=== PATIENT | male | born 1985 | race Caucasian/White ===

== ENCOUNTER 2021-01-03 11:57 | Emergency (ER) | payer BC ==
[2021-01-03] MEDS ORDERED: HYDROmorphone 1 MG/ML Syringe IM ONE (12:20)
--- NOTE | 2021-01-03 12:25 | EDM.PDOC ---
ED HPI GENERAL MEDICAL PROBLEM - General Chief Complaint: Lower Extremity Injury/Pain Stated Complaint: RT ANKLE INJURY Time Seen by Provider: 01/03/21 12:09 Source of Information: Reports: Patient, RN Notes Reviewed History Limitations: Reports: No Limitations - History of Present Illness INITIAL COMMENTS - FREE TEXT/NARRATIVE: Patient is a 35-year-old male who presents to the ER for a right lower leg injury. 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 He reports pain in his right lower leg, and right ankle. He was initially able to bear weight, however he states that the pain is so bad now that he cannot bear weight. He did take 4 ibuprofen prior to coming to the ER. He does note a prior injury to this ankle. He states he was also able to wiggle his toes prior to coming to the ER but he notes he has not been able to do so, due to the pain. There are some small superficial abrasions on the medial ankle, and on the anterior hearn as well. Mild amount of swelling is appreciated. Patient denies any other sick-like symptoms, fever/chills, cough/shortness of breath, nausea/vomiting/diarrhea. Right Ankle Pain Score (Numeric/FACES): 8 - Related Data Allergies Allergy/AdvReac Type Severity Reaction Status Date / Time No Known Allergies Allergy Verified 01/03/21 12:10 Home Meds: Home Meds Hydrocodone/Acetaminophen [Hydrocodone-Acetamin 5-325 mg] 1 tab PO Q6H PRN #20 tablet 01/03/21 [Rx] Loratadine/Pseudoephedrine [Claritin-D 24 Hour Tablet] 1 tab PO DAILY 01/03/21 [History] Past Medical History Genitourinary History: Reports: Renal Calculus Musculoskeletal History: Reports: Other (See Below) Other Musculoskeletal History: multiple fractures - Past Surgical History HEENT Surgical History: Reports: Tonsillectomy Social & Family History - Tobacco Use Tobacco Use Status *Q: Current Every Day Tobacco User Years of Tobacco use: 20 Packs/Tins Daily: 0.5 - Caffeine Use Caffeine Use: Reports: Coffee - Recreational Drug Use Recreational Drug Use: No Review of Systems - Review of Systems Review Of Systems: Comprehensive ROS is negative, except as noted in HPI. ED EXAM, GENERAL - Physical Exam Exam: See Below Exam Limited By: No Limitations General Appearance: Alert, WD/WN, No Apparent Distress Respiratory/Chest: No Respiratory Distress, Lungs Clear, Normal Breath Sounds, No Accessory Muscle Use, Chest Non-Tender Cardiovascular: Normal Peripheral Pulses, Regular Rate, Rhythm, No Edema Peripheral Pulses: 2+: Dorsalis Pedis (L), Dorsalis Pedis (R) Extremities: Normal Capillary Refill, Limited Range of Motion (of right ankle d/t pain), Other (1+ swelling to right lower leg) Neurological: Alert, Oriented, Normal Cognition, No Motor/Sensory Deficits Psychiatric: Normal Affect, Normal Mood, Anxious Skin Exam: Warm, Dry, Normal Color, No Rash, Wound/Incision (small superficial abrasions to R medial malleolus, and anterior hearn) Course - Vital Signs Last Recorded V/S: Last Vital Signs Temp 97 F 01/03/21 12:08 Pulse 86 01/03/21 12:08 Resp 16 01/03/21 12:08 BP 136/94 H 01/03/21 12:08 Pulse Ox 98 01/03/21 12:08 - Orders/Labs/Meds Orders: Active Orders 24 hr Category Date Time Status SYED Bandage [Elastic Wrap] [OM.PC] Routine Oth 01/03/21 13:12 Ordered Meds: Medications Discontinued Medications Generic Name Dose Route Start Last Admin Trade Name Patti PRN Reason Stop Dose Admin Hydromorphone HCl 1 mg 01/03/21 12:20 01/03/21 12:26 Hydromorphone 1 Mg/Ml Syringe IM 01/03/21 12:21 1 mg ONETIME ONE Administration - Re-Assessments/Exams Free Text/Narrative Re-Assessment/Exam: 01/03/21 12:24 Patient presents to the ER for right lower leg injury. We will go ahead and get x-rays of his tib-fib and ankle for evaluation, he will get 1 mg IM Dilaudid for pain management. 01/03/21 13:14 The patient's x-rays have been performed, there is soft tissue swelling however there is no acute osseous abnormality appreciated on the right ankle exam or tib-fib exam. I will discharge patient home with general recommendations. Departure - Departure Time of Disposition: 13:15 Disposition: Home, Self-Care 01 Condition: Good Clinical Impression: Crushing injury of right lower leg, initial encounter, Skin abrasion Right ankle pain Qualifiers: Chronicity: acute Qualified Code(s): M25.571 - Pain in right ankle and joints of right foot Contusion of lower leg Qualifiers: Encounter type: initial encounter Laterality: right Qualified Code(s): S80.11XA - Contusion of right lower leg, initial encounter - Discharge Information *PRESCRIPTION DRUG MONITORING PROGRAM REVIEWED*: Yes *COPY OF PRESCRIPTION DRUG MONITORING REPORT IN PATIENT CHRISTINA: No Prescriptions: Hydrocodone/Acetaminophen [Hydrocodone-Acetamin 5-325 mg] 1 tab PO Q6H PRN #20 tablet PRN Reason: Pain Instructions: Contusion, [id number] Referrals: PCP,None [Primary Care Provider] - Forms: ED Department Discharge Additional Instructions: You have been evaluated in the ED for your right lower leg injury. Your x-ray demonstrated no acute fracture or other bony abnormalities, there is quite a bit of soft tissue swelling. Please use ice as tolerated to the affected area. Please try to elevate the affected area to relieve swelling. You may keep the Syed wrap in place to help compress the tissues as well to help relieve some of the swelling. You may take Tylenol 500 mg or ibuprofen 600mg q6 hrs for pain relief. Please do so until you have a tolerable level of pain with activity. Do not exceed 4000mg Tylenol or 3200mg ibuprofen in a 24 hour time period. You were given a prescription for a strong pain medication, hydrocodone/acetaminophen 5/325 mg, please take 1 tab every 6 hours as needed for pain not relieved by Tylenol or ibuprofen alone. Please note this medication does contain Tylenol in it, so do not take more than 4000 mg in a 24- hour time span. These medications can be addictive, so please take as few as possible to achieve adequate pain control. These meds can also be quite constipating, recommend that you increase your oral fluid intake and take a stool softener like MiraLAX while taking these medications. Do not drive while taking this medication. This medication was electronically sent to the [facility] located near [facility]. Please return to ED if your symptoms should change or worsen. Sepsis Event Note (ED) - Evaluation Sepsis Screening Result: No Definite Risk - Focused Exam Vital Signs: Vital Signs Temp Pulse Resp BP Pulse Ox 01/03/21 12:08 97 F 86 16 136/94 H 98 - My Orders Last 24 Hours: My Active Orders 01/03/21 13:12 SYED Bandage [Elastic Wrap] [OM.PC] Routine - Assessment/Plan Last 24 Hours: My Active Orders 01/03/21 13:12 SYED Bandage [Elastic Wrap] [OM.PC] Routine
--- NOTE | 2021-01-03 12:59 | CR ---
Right ankle: 3 views centered to the right ankle were obtained. Comparison: No prior ankle study is available. Ankle mortise is symmetric. No acute fracture, dislocation or other bony abnormality is appreciated. Soft tissue swelling is present medially. Impression: 1. Soft tissue swelling. 2. No osseous abnormality is seen on right ankle exam. Diagnostic code #2
--- NOTE | 2021-01-03 13:11 | CR ---
Right tibia and fibula: AP and lateral views of the right tibia and fibula were obtained. Comparison: No prior tibia or fibula study is available. No fracture or other bony abnormality is seen. No abnormal soft tissue calcifications are noted. Mild soft tissue swelling is present. Impression: 1. Mild soft tissue swelling. 2. No acute bony abnormality is seen. Diagnostic code #2
== END 2021-01-03 13:34 | disposition home or self-care (01) ==
LOC: JD.ED 11:57
DX: S87.81XA Crushing injury of right lower leg, initial encounter (principal); S80.11XA Contusion of right lower leg, initial encounter; Z72.0 Tobacco use; W55.29XA Other contact with cow, initial encounter
CPT/HCPCS: 73590; 73610; 96372; 99283; J1170

== ENCOUNTER 2023-08-08 11:55 | Emergency (ER) | payer BC, OTHER ==
[2023-08-08] MEDS ORDERED: Sodium Chloride 0.9% 10 ML Syringe FLUSH PRN (12:11)
[2023-08-08] MEDS ORDERED: HYDROmorphone 1 MG/ML Syringe IVPUSH ONE (12:15)
[2023-08-08] MEDS ORDERED: Ondansetron 4 MG/2 ML SDV IVPUSH ONE (12:15)
[2023-08-08] MEDS ORDERED: Ketorolac 30 MG/ML SDV IVPUSH ONE (12:15)
[2023-08-08] MEDS ORDERED: Sodium Chloride 0.9% 1,000 ML IV STA (12:15)
[2023-08-08 12:48] LABS: BASOPHILS ABSOLUTE AUTO 0.1 K/mm3 (0.0-0.2); BASOPHILS PERCENT AUTO 0.7 % (0.0-1.0); EOSINOPHILS ABSOLUTE AUTO 0.2 K/mm3 (0.0-0.4); EOSINOPHILS PERCENT AUTO 2.8 % (0.0-6.0); HEMOGLOBIN 18.1 gm/dl (14.0-18.0); IMMATURE GRAN ABSOLUTE AUTO 0.02 K/mm3 (0.00-0.05); IMMATURE GRAN PERCENT AUTO 0.3 % (0.0-0.4); MEAN CORPUSCULAR HEMOGLOBIN 30.6 pg (28.0-32.0); MEAN CORPUSCULAR HGB CONC 34.8 g/dl (32.0-36.0); MEAN PLATELET VOLUME 9.2 fl (9.4-12.4); MONOCYTES ABSOLUTE AUTO 0.5 K/mm3 (0.0-0.8); MONOCYTES PERCENT AUTO 6.4 % (0.0-8.0); NEUTROPHILS ABSOLUTE AUTO 4.7 K/mm3 (1.8-7.7); NEUTROPHILS PERCENT AUTO 62.8 % (41.0-71.0); PLATELET COUNT,PLT 367 K/mm3 (150-400); RED BLOOD CELL COUNT 5.91 M/mm3 (4.52-5.90); WHITE BLOOD CELL COUNT,WBC 7.47 K/mm3 (3.9-11.3)
[2023-08-08 13:12] LABS: ALANINE AMINOTRANSFERASE,ALT 85 U/L (16-63); ALBUMIN 4.4 g/dl (3.4-5.0); ALKALINE PHOSPHATASE 63 U/L (46-116); ANION GAP 12.3 (5-15); ASPARTATE AMNIOTRANSFERASE,AST 41 U/L (15-37); BILIRUBIN TOTAL 0.8 mg/dL (0.2-1.0); BLOOD UREA NITROGEN,BUN 12 mg/dL (7-18); BUN/CREATININE RATIO 9.2 (14-18); C-REACTIVE PROTEIN <0.2 mg/dL (<1.0); CALCIUM 9.9 mg/dL (8.5-10.1); CARBON DIOXIDE,CO2 29 mEq/L (21-32); CHLORIDE,CL 103 mEq/L (98-107); CREATININE 1.3 mg/dL (0.7-1.3); EST CRCL DRUG DOSING (CG) 75.27 mL/min; ESTIMATED GFR 73 mL/min (>60); GLUCOSE RANDOM 118 mg/dL (70-99); POTASSIUM,K 5.3 mEq/L (3.5-5.1); SODIUM,NA 139 mEq/L (136-145)
[2023-08-08 14:24] LABS: APPEARANCE,URINE CLEAR (Clear); BILIRUBIN,URINE NEGATIVE (Negative); COLOR,URINE YELLOW (Yellow); GLUCOSE,URINE NEGATIVE (Negative); KETONES,URINE NEGATIVE (Negative); LEUKOCYTE ESTERASE,URINE NEGATIVE (Negative); NITRITE,URINE NEGATIVE (Negative); OCCULT BLOOD,URINE NEGATIVE (Negative); PROTEIN,URINE 2+ (Negative); UROBILINOGEN,URINE 0.2 (0.2-1.0)
[2023-08-08 14:59] LABS: BACTERIA,URINE FEW /hpf (FEW); MUCUS,URINE MANY /hpf (FEW); RBC,URINE 0-5 /hpf (0-5); SQUAMOUS EPITHELIAL CELLS,UR 0-5 /hpf (0-5); WBC,URINE 0-5 /hpf (0-5)
== END 2023-08-08 16:17 ==
LOC: JD.ED 11:55
DX: N20.0 Calculus of kidney (principal); F17.210 Nicotine dependence, cigarettes, uncomplicated
CPT/HCPCS: 36415; 74176; 80053; 81001; 85025; 86140; 96374; 96375; 99285; J1170; J1885; J2405; J3490; J7030